=== PATIENT | female | born 2000 | race Caucasian/White ===

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

== ENCOUNTER 2025-02-26 10:46 | Outpatient (CLI) | payer OTHER, SELFPAY ==
--- NOTE | ~2025-02-26 | US_ITS ---
US breast BI limited INDICATION: Bilateral breast lumps/tenderness TECHNIQUE: Dedicated Limited bilateral breast ultrasound. COMPARISON: No prior studies for comparison. FINDINGS: The breasts breast is/are composed of normal heterogeneous echotexture without focal solid or cystic mass. IMPRESSION: 1: Normal limited bilateral breast ultrasound. BI-RADS CATEGORY 1 - NEGATIVE Reviewed, dictated and finalized at location B.
--- OUTSIDE RECORDS SUMMARY | 2025-02-26 10:54 | XMS_ITS | Data Portability ---
Author Organization [facility] [place] Address [address] [place] [place] [address] [place] [address] Assessment Encounter Date Assessment Date Assessment LastModified by Organization Details LastModified Time 05/01/2023 05/01/2023 Unbillable visit--Has mirena and it doesn't need to be changed for 8yrs vs 5yrs. [email or web address] Not available 05/01/2023 15:37:29 07/14/2024 07/14/2024 Annual gynecological exam performed. Patient will come back in a year unless there are new symptoms. [email or web address] Not available 06/25/2024 12:33:23 Plan of Treatment Reminders Order Date Submit Date Provider Last Modified By Organization Details Last Modified Time Details Appointments None recorded. Lab pap, IG + reflex HPV if ASC-U - if hpv positive run subtyping 16, 18/45add gc/chlam/tr ich 2023 024 [facility] (Lab), [address], [place], [address], 4 13:50:58 Referral None recorded. Procedures None recorded. Surgeries None recorded. Imaging US, breast, bilateral - Bilateral mastalgia and fibrocystic breast changes 2024 025 [facility], [address], [place], [address], 5 04:06:18 US, transvagina l 2021 022 [email or web address] [place], [address], [address], [place], [address], 19:35:07 Medication Orders None recorded. Patient TargetsNo targets recorded. Patient InstructionsNo instructions recorded. Reason for Referral None Reported. Results Created Date Observation Date Name Description Value Unit Range Abnormal Flag Note LastModifiedBy Organization Detail LastModifiedTime 06/21/20 22 06/21/2022 CT/GC AND TRICH OMONA S VAGIN GEORGE (RRNA ), SWAB chlamydia trachomatis, PCR Negati ve negati ve Not Available [facility] [address] [place] [address], [phone], 06/22/2022 18:10:19 06/21/20 22 06/21/2022 CT/GC AND TRICH OMONA S VAGIN GEORGE (RRNA ), SWAB neisseria gonorrhoeae, PCR Negati ve negati ve Not Available [facility] Disease [address] [place] [address], [phone], 06/22/2022 18:10:19 06/21/20 22 06/21/2022 CT/GC AND TRICH OMONA S VAGIN GEORGE (RRNA ), SWAB trichomonas vaginalis ribosomal RNA (rrna) Negati ve negati ve Not Available [facility] Disease [address] [place] [address], [phone], 06/22/2022 18:10:19 11/08/19 24 11/08/2023 CULTU RE: URINE result report SEE RESULT S BELOW abnormal Test: Cultu re: Urine Speci men Sourc e: Urine Voide d Speci men Type: Urine Speci men Date: 2023 10:29 AM Resul t Date: 2023 10:27 AM Resul t Statu s: Final resul t Abnor mal: Yes Marlys schmitz Lab: [facility] [address] [facility] [address] Tel: CULTU RE ----- ----- ----- --- >100, 000 CFU/m l Esche diamond a coli (Abno rmal) SUSCE PTIBI LITY ----- ----- ----- --- Esche diamond a coli METHO D VERÓNICA ----- ----- ----- ----- ----- ---- ----- ----- ----- ----- --- AMPIC ILLIN >16 ug/mL Resis tant CEFAZ CHARMAINE 16 ug/mL Susce ptibl e NITRO FURAN TOIN <=32 ug/mL Susce ptibl e TRIME THOPR IM/MARTINEZ LFAME THOXA ZOLE >2 ug/mL Resis tant Not Available [facility] (Lab) [address], [place], [address], 11/11/2023 11:31:05 07/14/20 24 07/14/2024 IMAGE GUIDE D PAP, REFLE X HPV IF ASCUS ONLY image guided Pap, reflex HPV ASCUS only SEE RESULT S BELOW CASE REPOR T: Cytol ogy Gynec ologi keara Repor t Case: [id number] Autho annmarie g Provi yuly: Michel swartz, Ronda , ANP, [employer] BOARD PANELS Colle cted: 07/14 1418 Order ing Locat ion: [place] [facility] Recei ramiro: 07/15 1241 First Scree n: Sol duran, [place] , [place] Speci men: Scree paulo Pap - Image d, Cervi x STATE MENT OF ADEQU ACY: Satis facto ry for evalu ation Trans forma tion zone compo nent prese nt ----- ----- ----- ----- ----- ----- ----- ----- ----- ----- ----- ----- ----- ----- ----- ----- ----- ---- FINAL DIAGN OSIS: Negat jesus for Intra epith elial Selina auguste or Clovis zambrano (NIL) . Elect osiel carrasquillo by [place] Espinoza , [place] on 2023 at 12:47 PM ----- ----- ----- ----- ----- ----- ----- ----- ----- ----- ----- ----- ----- ----- ----- ----- ----- ---- COMME NT: This speci men was revie wed by a Cytot echno logis t and/o r Patho logis t (as indic ated in this repor t) after evalu ation using the Thinp rep Imagi ng Syste m. CLINI KEARA INFOR MATIO N: Menst rual Statu s: LMP (if appli cable ): Clini keara Histo ry/Pr eviou s Pap: Type of Neopl sofiya (if appli cable ): Signi fican t Clini keara Findi ngs: Other Histo ry: Hormo jannie (if appli cable ): PAP EDUCA MARCO A L NOTE: The Pap Test is a scree paulo test with an inher ent false negat jesus rate. Liqui d-bas ed sampl ing may decre ase, but will not elimi cierra, false negat jesus resul ts. A negat jesus resul t does not precl ude the prese nce and/o r devel opmen t of disea se, since the prese nce of abnor mal cells in the sampl e depen ds on the locat ion of the lesio n and sampl ing techn ique. Blossom nued regul ar scree paulo is the best metho d of cance r preve ntion . If repor mercedes cytol ogic findi ng do not corre late with physi keara and/o r histo rical findi ngs, furth er inves tigat ion is recom naomie d, as jojo loyola nted. Not Available [facility] (Lab) [address], [place], [address], 07/21/2024 13:50:57 07/14/20 24 07/14/2024 CT/GC (BARRY) , THINP REP VIAL chlamydia trachomatis, PCR Negati ve negati ve Not Available [facility] (Lab) [address], [place], [address], 07/21/2024 13:50:58 07/14/20 24 07/14/2024 CT/GC (BARRY) , THINP REP VIAL neisseria gonorrhoeae, PCR Negati ve negati ve Not Available [facility] (Lab) [address], [place], [address], 07/21/2024 13:50:58 07/14/20 24 07/14/2024 TRICH OMONA S VAGIN GEORGE (RRNA ) trichomonas vaginalis ribosomal RNA (rrna) Negati ve negati ve Not Available [facility] (Lab) [address], [place], [address], 07/21/2024 13:50:59 06/25/20 22 06/25/2022 US, trans vagin al No observ ation record ed. [email or web address] [place] [address], [place], [address], 06/25/2022 18:24:49 06/25/20 22 06/25/2022 US, trans vagin al No observ ation record ed. [email or web address] [address], [place], [address], 04/05/2023 15:25:09 Result Notes None recorded. Problems Name Problem SNOMED Code Status [place] Date Resolution Date Notes Provider Name and Address Organization Details Recorded Time Clinical finding Completed 201806/22/2021 Presence of (intraute rine) contracep tive device;Re corded Elsewhere : No Locati on: [facility] So urce: EHR Chron ic: N Practic e ID: [id number] Bill able Time: 11:30:00 AM Janet Rea [place], [place] - [facility] 13:48:05 Educatio n Completed 201806/22/2021 Encounter for other general counselin g and advice on contracep tion;Brett rded Elsewhere : No Locati on: [facility] So urce: EHR Chron ic: N Practic e ID: [id number] Bill able Time: 04:00:00 PM Janetkoffi Rea [facility] 13:48:07 Insertio n of intraute rine contrace ptive device Completed 201806/22/2021 Encounter for insertion of intrauter ine contracep tive device;Re corded Elsewhere : No Locati on: [facility] So urce: EHR Chron ic: N Practic e ID: [id number] Bill able Time: 11:30:00 AM Janet [facility] 13:48:09 Pregnanc y test negative [id number] Completed 201806/22/2021 Encounter for test, result negative; Recorded Elsewhere : No Locati on: [facility] So urce: EHR Chron ic: N Practic e ID: [id number] Bill able Time: 11:30:00 AM Janet [facility] 13:48:[address] Concept Completed 201906/22/2021 Encounter for other contracep tive managemen t;Recorde d Elsewhere : No Locati on: [facility] So urce: EHR Chron ic: N Practic e ID: [id number] Bill able Time: 03:15:00 PM Janet [facility] 13:48:13 Problem Notes None recorded. Procedures Surgical History Date Name Laterality Status Provider Name and Address Organization Details Recorded Time 4 IUD Insertion completed Aixa Pruitt [facility] 06/25/2024 12:33:37 Imaging Results None recorded. Procedure Notes None recorded. Medical Equipment None Reported. Allergies No known drug allergies Medications Name Sig Start Date Stop Date Status Note LastModified by Organization Details LastModified Time fluoxetin e 40 mg capsule TK ONE C PO QD 08/16 completed Not Available Not Available Not Available Mirena 21 mcg/24 hr (up to 8 years) 52 mg intrauter ine device Take by intraute rine route. active Not Available Not Available No t Available fluconazo le 100 mg tablet TAKE 1 TABLET BY MOUTH EVERY 72 HOURS 07/14 completed Not Available Not Available Not Available doxycycli ne hyclate 100 mg capsule Take 1 capsule twice a day by oral route. 07/25 completed Not Available Not Available Not Available nitrofura ntoin macrocrys natalia 100 mg capsule TAKE 1 CAPSULE BY MOUTH TWICE A DAY 08/16 completed Not Available Not Available Not Available Cytotec [address] one 100mcg tablet vaginall y the night before IUD insertio n. 06/22 completed Prescrib ed Carol e: No Locat ion: [facility] odify By: jennifer varghese DateTime : 08/11/20 04:00:00 PM Not Available Not Available Not Available fluoxetin e 20 mg capsule TK ONE C PO QD 08/16 completed Not Available Not Available Not Available sertralin e 50 mg tablet TAKE 1 TABLET BY MOUTH DAILY 07/14 completed Not Available Not Available Not Available escitalop janki 10 mg tablet TAKE 1 TABLET BY MOUTH EVERY DAY 08/16 completed Not Available Not Available Not Available escitalop janki 20 mg tablet TAKE 1 TABLET BY MOUTH EVERY DAY 08/16 completed Not Available Not Available Not Available nitrofura ntoin monohydra te/macroc rystals 100 mg capsule TAKE 1 CAPSULE BY MOUTH EVERY 12 HOURS FOR 7 DAYS 07/14 completed Not Available Not Available Not Available Vitals Date Recorded Body height Body mass index (BMI) Body weight Systolic blood pressure Diastolic blood pressure Provider Name and Address Organization Details Last Updated DateTime 02/04/2025 152.4 cm 25 kg/m2 98506.82 g 125 mm[Hg] 81 mm[Hg] Aixa Pruitt [facility] 12:45:31 Date Recorded Body height Body mass index (BMI) Body weight Systolic blood pressure Diastolic blood pressure Provider Name and Address Organization Details Last Updated DateTime 07/14/2024 152.4 cm 25.7 kg/m2 84977.76 g 124 mm[Hg] 81 mm[Hg] Aixa Pruitt [facility] 4 11:58:55 Social History Question Answer Notes LastModified by Organizat ion Details LastModified Time Tobacco Smoking Status Never Smoker Genet Gutierrez patricia, [facility] 08/16/2020 10:33:47 Are You Blind Or Do You Have Difficulty Seeing? No Information not available 06/22/2021 What Is Your Level Of Caffeine Consumption? Occasional Information not available 06/22/2021 Are You Deaf Or Do You Have Serious Difficulty Hearing? No Information not available 06/22/2021 What Type Of Diet Are You Following? REGULAR Information not available 06/22/2021 Do You Use Your Seat Belt Or Car Seat Routinely? Yes Information not available 06/22/2021 Do You Have Smoke And Carbon Monoxide Detectors In Your Home? Yes Information not available 06/22/2021 Do You Use Sunscreen Routinely? Yes Information not available 06/22/2021 Do You Have Difficulty Walking Or Climbing Stairs? No Information not available 06/21/2022 Sex: Unknown Functional Status Question Answer Note LastModified by Organizat ion Details LastModified Time Do you use any illicit or recreational drugs? No Information not available 06/22/2021 What is your level of alcohol consumption? Occasional Information not available 06/22/2021 Are you able to walk? YESWOREST Information not available 06/22/2021 Are you able to care for yourself? Yes Information n ot available 06/21/2022 Do you have difficulty dressing or bathing? No Information not available 06/21/2022 What is your exercise level? Occasional Information not available 06/22/2021 Mental Status Question Answer Note LastModified by Organization D etails LastModified Time Do you feel stressed (tense, restless, nervous, or anxious, or unable to sleep at night)? [id number] Information not available 06/22/2021 Family History Nothing Reported. Medical History Condition Response Other N Blood Transfusion N Dermatologic Disorders N Gestational Diabetes N Anxiety Disorder N Autoimmune disease N Arthritis N Polyps N Infertility N Acid Reflux (GERD) N Cancer N Varicosities N Stroke N Neurologic/Epilepsy N Fibromyalgia N Headaches N Kidney Disease N Heart Problems N Kidney or Bladder Problems N Eating Disorder N Art (IVF or FET) N Hepatitis/Liver Disease N No Past Medical History N Urinary Tract Infection N Asthma N Trauma/Violence N Thrombophilias N Allergies (Food, seasonal, environmental ) N Breast Cancer N Drug/Latex Allergies/Reactions N Lung Disease N Defects or Inherited Disease N Breast Problem N Hematologic disorders N Anesthesia Complications N History of STI N Deep Vein Thrombosis N Polycystic ovary syndrome N History of abnormal pap N Endometriosis N High Cholesterol N Thyroid Problems N GI Problems N Anemia N Psychiatric Illness N Ovarian Cancer N Diabetes N Pulmonary (TB, Asthma) N Eczema N Abuse/Domestic Violence N Depression/ depression N Heart Disease N Pre-Eclampsia N Hypertension N Osteoporosis N Gynecological History Statement/Question Response Flow Light Date of LMP 01/31/2025 Was last menstrual period normal N STIs/STDs Y Current Control Method IUD Are cycles usually normal N Frequency of Cycle (Q days) 30 Sexually Active? Y Menses Monthly Y Age of first menstrual cycle 16 Date of Last Pap Smear Sexual Problems? N LMP Definite Obstetrics History GPAL:G 0 P 0 0 0 0 Past Encounters Encounter ID Performer Location Encounter Start Date Encounter Closed Date Diagnosis/Indication Diagnosis SNOMED-CT Code Diagnosis ICD10 Code Diagnosis Note [id number] [facility] [address] [address] 08/16/2020 10:26:12 08/16/2020 11:35:48 Gynecologic examination 25648798 Z01.419 Take Calcium with Vitamin D 1200mg daily if not receiving in daily diet. It is strongly advised to have an annual flu shot and up can obtain at most pharmacies . If you have not had a TDap shot in the last 10 years you should obtain one as well. Discussed with patient & provided with informatio n regarding Gardisil vaccine to prevent the 4 strains for HPV that cause cervical cancer. Encourage safe sexual practices, to use condoms and limit partners if not already in a monogamous relationsh ip. Do monthly self breast exams. BRCA testing is now available for patients with strong genetic history of female cancer. If interested contact the office. Engage in daily exercise of low impact aerobic exercise 45-60 minutes 4-5 times weekly. Avoid tobacco, illicit drugs, and alcohol. This lifestyle behavior pattern will lead to less health conditions and longer life span. If BMI greater than 25 weight watchers or dietary consult advised. Pap smear is not recommende d prior to the age of 21. If you have any concerns, pelvic, or vaginal problems we can discuss testing. Patient received above instructio ns, and questions have been answered. If you have any questions please call or respond to this email. Patient was made aware of the patient portal and may obtain a paper copy of today's plan if desired. [id number] Cindy Martin [facility] [address] [address] 06/22/2021 14:22:16 06/22/2021 16:03:34 Abnormal uterine bleeding [id number] 9100 N93.9 Will update TVUSVag cx's sentIUD strings + on exam Time spent in visit is a total of 28 mins with at least 50% of visit consisting of counseling and review of plan of care.Addit ional precaution bruce measures were taken to minimize potential exposure to the Covid-19 virus during this patient s visit, including available hand real estate economist upon arrive, temperatur e check and being asked a series of screening questions. All staff wore face coverings during this encounter, as well as provided additional cleaning and sanitizing of all surfaces, including countertop s, pens, chairs, door handles, light switches, etc, prior to and following the patient s visit. Patient is to contact office or go to nearest ED/Urgent care if fever >/= 100.1, pain, excessive bleeding, unusual drainage or swelling in area of concern; or experienci ng worsening sx's or new onset of concerning sx's. Understand ing verbalized . All questions [place]. [id number] Beck Dooley MD [place] [address] [address] 06/26/2021 11:17:29 06/26/2021 12:26:40 Abnormal uterine bleeding 1560137726 9100 N93.9 [id number] Cindy Martin [facility] [address] [address] 07/25/2021 12:34:18 07/25/2021 14:15:27 Venereal disease screening 564420035 Z11.3 ARNOLD urine cx sentNo issues or complaints Safe sex practices reviewedUn reyes aponte verbalized . Will call if results are abn Time spent in visit is a total of 15 mins with at least 50% of visit consisting of counseling and review of plan of care.Addit ional precaution bruce measures were taken to minimize potential exposure to the Covid-19 virus during this patient s visit, including available hand real estate economist upon arrive, temperatur e check and being asked a series of screening questions. All staff wore face coverings during this encounter, as well as provided additional cleaning and sanitizing of all surfaces, including countertop s, pens, chairs, door handles, light switches, etc, prior to and following the patient s visit. [id number] THERESE Dunn [place] [address] [address] 06/21/2022 09:37:39 06/21/2022 10:07:31 Gynecologic examination 57837525 Z01.419 Take Calcium with Vitamin D 1200mg daily if not receiving in daily diet. It is strongly advised to have an annual flu shot and up can obtain at most pharmacies . If you have not had a TDap shot in the last 10 years you should obtain one as well. Discussed with patient & provided with informatio n regarding Gardisil vaccine to prevent the 4 strains for HPV that cause cervical cancer. Encourage safe sexual practices, to use condoms and limit partners if not already in a monogamous relationsh ip. Do monthly self breast exams. BRCA testing is now available for patients with strong genetic history of female cancer. If interested contact the office. Engage in daily exercise of low impact aerobic exercise 45-60 minutes 4-5 times weekly. Avoid tobacco, illicit drugs, and alcohol. This lifestyle behavior pattern will lead to less health conditions and longer life span. If BMI greater than 25 weight watchers or dietary consult advised. Pap smear is not recommende d prior to the age of 21. If you have any concerns, pelvic, or vaginal problems we can discuss testing. Patient received above instructio ns, and questions have been answered. If you have any questions please call or respond to this email. Patient was made aware of the patient portal and may obtain a paper copy of today's plan if desired.WW EBC - Mirena IUD - inserted around 1-2 years ago per patientHap py with IUD.IUD strings not visualized on exam today. We agreed to pelvic u/s to assess IUD placementN o pap today - first pap at age 23STI endocervic al testing [facility] for pelvic u/s Contracept ion care management [id number] Z30.9 IUD check 893521663 Z30. 431 Venereal d isease screening 327762336 Z11.3 [id number] Beck Dooley MD [place] [address] [address] 06/25/2022 11:22:40 06/25/2022 12:59:10 Mechanical complication of intrauterine contraceptive device 595808548 T83.39XA [id number] Cindy Martin [facility] [address],[place] [address] 05/01/2023 15:17:18 05/01/2023 15:57:19 [id number] Beck Dooley MD [place] [address],[place] [address] 07/14/2024 11:45:46 07/14/2024 13:28:05 Gynecologic examination 20871172 Z01.419 Z11.3 Z11.8 Annual gynecologi keara exam performed. Patient will come back in a year unless there are new symptoms. Suggest Calcium with Vitamin D if not eating in diet. Patient advised to get annual flu shot. Recommend yearly physicals and perform monthly breast exams. Genetic testing is available for patients with family history of cancer. Engage in safe sexual practices, use condoms. Encouraged to have daily exercise. Avoid tobacco and illicit drugs, moderation of alcohol. If BMI greater than 25 dietary consult advised. If you have any questions please call or email. mammogram- n/a colon cancer screening - n/a DEXA scan- n/a Pap smear- pap w/ HPV collected. If WNL, will repeat pap q3-5 years per ASCCP guidelines . laboratory evaluation - declined STI testing - requested Venereal d isease screening 024174471 Z11.3 Pt requested STI testing for GC/CT.Disc ussed the various types of STDs, related symptoms and the potential consequenc es (including effects on fertility) of STD infections . Reviewed ways to limit exposure and prevention techniques . Contracept ion care management 431210580 Z30.9 Patient wishes to keep IUD. Strings visible/in tact.Patie nt to call office if periods periods become more bothersome , such as lasting longer than 10-14 days, more frequent, saturating pads/tampo ns every hour, or with an other concerns. Discussed that IUD can be replaced if this occurs or BC pills can be added. Pt verbalized understand ing. [id number] Beck Dooley MD [place] [address] [address] 02/04/2025 12:35:06 02/04/2025 13:29:18 Mastodynia of bilateral breasts [id number] 0508986 N64.4 We discussed her breast exam findings and pt is counseled. Questions answered.I maging: bilateral breast ultrasound orderedOrd er given, patient to scheduleRe commended well-fitti [employer] sports bra. Recommende d vitamin E supplement 400-600 IU once or twice daily to help with breast tenderness . Reduce caffeine intake.Pat ient advised to perform self-breas t exams and report any changes. Health Concerns Section Related Observation LastModified by Organization Detai ls LastModified Time None Recorded Concern Status LastModified by Organization Details LastModified Time None Recorded Advance Directives Directive None Recorded Payers Insurance Date Sequence Insurance Name Policy Number Policy Gleason Covered Member ID Gleason Member ID Guarantor Name 02/03/2025 1 [facility] [id number] Flip Cruz [id number] Deanna Cruz Notes Date Note Type Note Provider Name and Address Organization Details Recorded Time 07/14/2024 text/html Annual GYNReport ed bypatient.History: no gynecologic complaints Menstrual cycle:Normal menses Urinary symptoms:No hematuria; No incontinence Vulva:No genital lesion Vagina:Normal vaginal discharge Breast:No breast pain; No breast lump; No nipple discharge Current Contraception:Sati sfied with current contraception; Intrauterine device (iud) Sexual complaints:No sexual complaints; No pain during intercourse; Normal libido Menopausal Symptoms:No menopausal symptoms; Normal vaginal lubrication Psychological symptoms:No depression; No anxiety; No PMDD Preventive measures:Encourage self breast examination; Encourage regular exercise; Encourage no tobacco use; Encourage regular mammograms starting age 40 Patient presents for annual well woman exam. Patient denies concerns today.Patient reports that she has regular cycles with Mirena IUD, states that her periods last 2-4 days but have gotten a little heavier than before. Pt changes tampons q2-4 hours, denies leaking through clothes. Denies pelvic pain. Pt reports that she does like the IUD and wants to keep it. RONDA DAVIDSON NP [address], [place], [address], VIBRA [facility] 07/14/2024 13:21:50 02/04/2025 text/html 24 y/o female presents with c/o worsening tenderness in both breast x 3 months.Patient states that she noticed swollen breast lumps in both breasts when on her period two weeks ago. Patient states that she cannot feel the lumps now, but still has tenderness especially when taking off her bra.Denies nipple discharge, skin changes.Denies FH of breast cancer. RONDA DAVIDSON NP [address], [place], [id number], [facility] 02/04/2025 13:14:28 OBGyn Episode No OBEpisode recorded.
== END 2025-02-26 10:47 | disposition home or self-care (01) ==
PROVIDERS: Visit Provider Student in an Organized Health Care Education/Training Program
DX: N64.4 Mastodynia (principal)
CPT/HCPCS: 76642